=== PATIENT | female | born 1970 | race Caucasian/White ===

== ENCOUNTER 2018-12-26 23:49 | Emergency (ER) | payer OTHER ==
[2018-12-27] MEDS: EPINEPHrine 1 MG INJ IM (00:03)
[2018-12-27] MEDS: DIPHENHYDRAMINE 50 MG INJ IV (00:04)
[2018-12-27] MEDS: METHYLPREDNISOLONE 125 MG INJ IV (00:04)
[2018-12-27] MEDS: FAMOTIDINE 20 MG INJ IV (00:04)
== END 2018-12-27 05:08 | disposition home or self-care (01) ==
LOC: E/R 23:49
DX: T78.3XXA Angioneurotic edema, initial encounter (principal)
CPT/HCPCS: 96372; 96374; 96375; 99284-25